=== PATIENT | male | born 1935 | race Caucasian/White ===

== ENCOUNTER 2016-09-12 09:49 | Outpatient (CLI) | payer MEDICARE, OTHER ==
[2015-01-25 18:19] VITALS: BP 134/76
--- NOTE | 2016-09-12 14:16 | Diagnostic Imaging Report ---
MIAN SHER - DALI [facility] [address] [facility] [address] [address] Report Submission Date: Sep 12, 2016 11:13:03 AM CHIEF CONTROLLER TOWER Patient Study Name: CUATE LO Date: Sep 12, 2016 10:01:12 AM CHIEF CONTROLLER TOWER Modality Type: CR Gender: M Description: SPINE : 35 Institution: [facility] Physician: MIAN SHER - DALI Lumbar spine - three views Clinical history: Left-sided back pain and sciatica. Findings: Examination lumbar spine in AP, lateral and lateral coned-down views demonstrates postoperative changes status post fusion of L3-S1 with pedicle screws at L3, L4 and S1 and posterior stabilization plates. Prior laminectomy has been performed at L3, L4 and L5. Metallic markers overlie the L4-5 disc space consistent with prosthetic cage. Anterior and lateral osteophytes are seen in the upper lumbar spine with narrowing of the disc spaces at L1-2 and L3. There is no evident fracture. There is mild dextroscoliosis with the apex at L3. Impression: 1. Postop fusion. 2. Spondylosis and dextroscoliosis. Electronically signed on Sep 12, 2016 11:13:03 AM CHIEF CONTROLLER TOWER by: Mumtaz COLON
== END 2016-09-12 09:50 ==
LOC: RAD 09:49
PROVIDERS: ATTEND Family Medicine
DX: M54.42 Lumbago with sciatica, left side (principal)
CPT/HCPCS: 72100

== ENCOUNTER 2017-08-12 19:17 | Emergency (ER) | payer MEDICARE, OTHER ==
[2017-08-12 19:35] VITALS: BP 148/86
--- NOTE | 2017-08-12 19:37 | ED Physician Documentation ---
General Adult - HISTORIAN Historian: patient - HPI Stated Complaint: cough, fever, COLEMAN, Chief Complaint: General Adult Onset: days ago Timing: still present Severity: moderate Further Comments: yes (Pt is an 81 yo male with sore throat, cough, since Saturday , days ago. Today pt developed chills and musle aches. No sob. No chest pain. No n/v.) - ROS CONST: fever, chills, other (malaise) EYES/ENT: sore throat CVS/RESP: cough GI/: none MS/SKIN/LYMPH: none - PAST HX Past History: other (ortho surgery, tonsillectomy, BPH, neuropathy) Allergies/Adverse Reactions: Allergies Allergy/AdvReac Type Severity Reaction Status Date / Time No Known Drug Allergies Allergy Verified 08/12/17 19:35 Home Medications: Ambulatory Orders Medication Instructions Recorded Tamsulosin HCl [Flomax] 0.4 mg PO HS av 03/30/13 Gabapentin 300 mg PO HS av 12/22/14 Amoxicillin [Trimox] 500 mg PO TID #30 capsule 08/12/17 Oseltamivir Phosphate [Tamiflu] 75 mg PO Q12H #10 capsule 08/12/17 - SOCIAL HX Smoking History: quit greater than 1 year - FAMILY HX Family History: No - VITAL SIGNS Vital Signs: Vital Signs Temp Pulse Resp BP Pulse Ox 99.4 F 85 16 148/86 94 08/12/17 19:31 08/12/17 19:31 08/12/17 19:31 08/12/17 19:31 08/12/17 19:31 - REVIEWED ASSESSMENTS Nursing Assessment Reviewed: Yes Vitals Reviewed: Yes Progress - Progress Progress: Rx Tamiflu 75 mg. Take one every 12 hrs for 5 days. Rx Amoxicillin 500 mg. Take one every 8 hrs for 10 days. General Adult Physical Exam - PHYSICAL EXAM GENERAL APPEARANCE: mild distress EENT: pharyngeal erythema NECK: normal inspection, supple RESPIRATORY: no resp distress, chest non-tender, breath sounds normal CVS: reg rate & rhythm, heart sounds normal BACK: normal inspection, no CVA tenderness SKIN: warm/dry, normal color EXTREMITIES: non-tender, normal range of motion, no evidence of injury NEURO: oriented X3, motor nml, sensation nml Discharge Clincal Impression: fever, sore throat, muscle ache Prescriptions: Amoxicillin [Trimox] 500 mg PO TID #30 capsule Oseltamivir Phosphate [Tamiflu] 75 mg PO Q12H #10 capsule Referrals: Cammie Gomez MD [Primary Care Provider] - Condition: Stable Disposition: 01 HOME, SELF-CARE Decision to Admit: NO Decision Time: 19:37
== END 2017-08-12 19:46 | disposition home or self-care (01) ==
LOC: ED 19:17
DX: R50.9 Fever, unspecified (principal); R51 Headache; R53.81 Other malaise
CPT/HCPCS: 99282

== ENCOUNTER 2017-11-26 14:10 | Outpatient (CLI) | payer MEDICARE, OTHER | END 2017-11-26 14:11 | LOC: POD 14:10 | PROVIDERS: ATTEND Podiatrist | DX: B35.1 Tinea unguium (principal); M20.21 Hallux rigidus, right foot; M20.22 Hallux rigidus, left foot; M79.675 Pain in left toe(s) | CPT/HCPCS: G0463 ==

== ENCOUNTER 2018-01-17 06:13 | Emergency (ER) | payer MEDICARE, OTHER ==
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
[2018-01-17 08:01] VITALS: BP 132/86
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
== END 2018-01-17 07:50 | disposition home or self-care (01) ==
LOC: ED 06:13
DX: S39.012A Strain of muscle, fascia and tendon of lower back, initial encounter (principal); V89.2XXA Person injured in unspecified motor-vehicle accident, traffic, initial encounter; Y92.9 Unspecified place or not applicable; Y93.9 Activity, unspecified; Y99.9 Unspecified external cause status
CPT/HCPCS: 72125; 72131; 99283